=== PATIENT | male | born 2000 | race Caucasian/White ===

== ENCOUNTER 2021-03-01 13:15 | Observation (INO) | payer OTHER ==
[~2021-03-01] VITALS: Ht 182.9 cm; Wt 88.5 kg
[2021-03-01 14:33] LABS: HEMOGLOBIN 16.1 gm/dl (14.0-17.5); RED BLOOD COUNT 5.14 M/UL (4.20-5.50); WHITE BLOOD COUNT 17.9 K/UL (4.5-11.0)
[2021-03-01 14:54] LABS: BUN/CREATININE RATIO 16 (0-10)
[2021-03-02 03:57] LABS: HEMOGLOBIN 13.6 gm/dl (14.0-17.5)
[2021-03-02 04:01] LABS: RED BLOOD COUNT 4.62 M/UL (4.20-5.50)
[2021-03-02 04:36] LABS: BUN/CREATININE RATIO 12 (0-10)
[2021-03-03 04:05] LABS: HEMOGLOBIN 13.2 gm/dl (14.0-17.5); RED BLOOD COUNT 4.25 M/UL (4.20-5.50)
[2021-03-03 04:18] LABS: WHITE BLOOD COUNT 6.9 K/UL (4.5-11.0)
[2021-03-03 04:27] LABS: BUN/CREATININE RATIO 13 (0-10)
[2021-03-03] MEDS ORDERED: ZOFRAN 4 MG TAB4 MG PO (11:29)
[2021-03-03] MEDS ORDERED: PROTONIX 40 MG40 M1 PO (11:29)
[2021-03-03] MEDS ORDERED: PROMETHAZINE HC25 M1 PO (11:34)
== END 2021-03-03 13:02 | disposition home or self-care (01) ==
LOC: ER1 13:15 → CDU 20:25 → M/S 20:25 → CDU 20:25 → M/S 03-02 07:03
PROVIDERS: Internal Medicine; ADMIT Internal Medicine
DX: K22.6 Gastro-esophageal laceration-hemorrhage syndrome (principal); D72.829 Elevated white blood cell count, unspecified; E87.6 Hypokalemia; R79.89 Other specified abnormal findings of blood chemistry; F12.90 Cannabis use, unspecified, uncomplicated; Z20.822 Contact with and (suspected) exposure to COVID-19
CPT/HCPCS: 36415; 71046; 71250; 71260; 80048; 80053; 83605; 83690; 85018; 85025; 96365; 96366; 96368; 96374; 96375; 96376; 99285; C9113; G0378; J0696; J2270; J2405; J2550; J2765; J7030; Q9963; Q9967; U0002

== ENCOUNTER → 2021-04-05 | Outpatient (CLI) | payer OTHER ==
[~2021-04-05] MED LIST: PROMETHAZINE HC25 M1 PO; PROTONIX 40 MG40 M1 PO; ZOFRAN 4 MG TAB4 MG PO
[2021-04-05 16:58] LABS: BUN/CREATININE RATIO 13 (0-10)
== END ==
LOC: LAB 15:00
PROVIDERS: Internal Medicine
DX: R94.5 Abnormal results of liver function studies (principal)
CPT/HCPCS: 36415; 71046; 80053